=== PATIENT | female | born 1985 ===

== ENCOUNTER → 2017-03-04 18:37 | Outpatient (CLI) | payer OTHER ==
[~2017-03-04 18:37] MED LIST: DOXEPIN HCL25 MG PO; EFFEXOR XR150 MG; LAMICTAL25 MG PO
== END | disposition home or self-care (01) ==
LOC: PPHC 18:37
DX: R42 Dizziness and giddiness (principal)

== ENCOUNTER 2017-07-03 12:36 | Outpatient (CLI) | payer OTHER | END 2017-07-03 12:38 | disposition home or self-care (01) | LOC: RAD 12:36 | DX: M54.2 Cervicalgia (principal) ==

== ENCOUNTER → 2017-07-03 | Outpatient (CLI) | payer OTHER | END | disposition home or self-care (01) | LOC: PPHC 10:57 | DX: Z76.0 Encounter for issue of repeat prescription (principal) ==

== ENCOUNTER 2017-08-20 10:47 | Outpatient (CLI) | payer OTHER | END 2017-08-20 14:38 | disposition home or self-care (01) | LOC: NUCLEAR 10:47 | DX: M06.9 Rheumatoid arthritis, unspecified (principal) | CPT/HCPCS: 78306; 78315; A9503 ==